=== PATIENT | female | born 1970 ===

== ENCOUNTER 2024-12-15 07:00 | Inpatient (IN) | payer OTHER ==
[~2024-12-15] VITALS: Ht 167.6 cm; Wt 82.6 kg
[2024-12-15 08:26] VITALS: BP 138/80
[2024-12-15 09:15] LABS: HEMOGLOBIN 13.3 g/dL (12.0-15.00); MEAN CORPUSCULAR HEMOGLOBIN 30.2 pg (27.00-32.0); MEAN CORPUSCULAR HGB CONC 33.1 g/dl (32.0-36.0); PLATELET COUNT 232 K/uL (150-450); RED CELL DISTRIBUTION WIDTH 13.3 % (11.5-14.5)
[2024-12-15 09:17] LABS: PH,URINE 6.5 (5.0-8.0); URINE APPEARANCE Clear; URINE BILIRRUBIN Negative (NEGATIVE); URINE BLOOD Negative; URINE COLOR Yellow; URINE GLUCOSE Negative (NEGATIVE); URINE KETONE Negative (NEGATIVE); URINE LEUKOCYTE Negative; URINE NITRATE Negative; URINE PROTEIN Negative (NEGATIVE); URINE UROBILINOGEN 0.2 E.U./dl
[2024-12-15 09:22] LABS: URINE BACTERIA 144.3 uL (0.0-1933); URINE EPITHELIAL CELLS 14.8 uL (0.0-38.8); URINE RBC 4.4 uL (0.0-20.8); URINE WBC 6.7 uL (0.0-23.2)
[2024-12-15 09:39] LABS: INR 0.99; PARTIAL THROMBOPLASTIN TIME 31.6 SECONDS (22.0-34.0); PROTHROMBIN TIME 10.8 SECONDS (9.0-11.5)
[2024-12-15 10:30] LABS: ALBUMIN 4.4 gm/dL (3.4-5.0); BILIRUBIN TOTAL 0.66 mg/dL (0.3-1.2); CALCIUM 9.9 mg/dL (8.5-10.1); CHOL HDL RATIO 3.4 (0-5.0); CREATININE SERUM 0.68 mg/dL (0.55-1.02); GFR 89.83; GLOBULINA 3.7 G/DL (2.4-3.5); POTASSIUM 4.55 mEq/L (3.5-5.1); TOTAL PROTEIN 8.1 gm/dL (6.4-8.2)
[2024-12-15 11:09] LABS: RH POSITIVE
[2024-12-26] MEDS ORDERED: TRANEXAMIC ACID 100MG/1ML (1000MG) AMPUL IV ONE ×2 (13:30)
[2024-12-26] MEDS ORDERED: LIDOCAINE HCL 1%/EPINEPHRINE 20ML VIAL IJ ONE (13:30)
[2024-12-26] MEDS ORDERED: ISOPROPYL ALCOHOL 30 ML OUNCE TOP ONE (13:30)
[2024-12-26] MEDS ORDERED: CEFAZOLIN SODIUM 1,000 MG VIAL IV ONE (13:30)
[2024-12-26] MEDS ORDERED: MORPHINE SULFATE 4 MG/ML VIAL IV ONE (13:30)
[2024-12-26] MEDS ORDERED: KETOROLAC TROMETHAMINE 60 MG VIAL IM ONE (13:30)
[2024-12-26] MEDS ORDERED: BUPIVACAINE HCL 30 ML VIAL IJ ONE (13:30)
[2024-12-26] MEDS ORDERED: SODIUM CHLORIDE 0.45 % 1,000 ML IV SCH (15:15)
[2024-12-26] MEDS ORDERED: OxyCODONE HCL 5 MG TABLET (ROXICODONE) PO PRN (15:15)
[2024-12-26] MEDS ORDERED: ONDANSETRON HCL 2 MG/ML VIAL IV PRN (15:15)
[2024-12-26] MEDS ORDERED: MORPHINE SULFATE 4 MG/ML CARTRIDGE IV PRN (15:15)
[2024-12-26] MEDS ORDERED: DIPHENHYDRAMINE HCL 50 MG/ML VIAL 1ML ONE (15:58)
[2024-12-26] MEDS ORDERED: CEFAZOLIN SODIUM 1,000 MG VIAL ONE (16:30)
[2024-12-26] MEDS ORDERED: GABAPENTIN 300 MG CAPSULE PO SCH (17:00)
[2024-12-26] MEDS ORDERED: CEFAZOLIN SODIUM 1,000 MG VIAL IV SCH (17:00)
[2024-12-26] MEDS ORDERED: ACETAMINOPHEN 500 MG GEL..CAP PO SCH (18:00)
[2024-12-26 20:01] VITALS: BP 151/77; O2SAT 99
[2024-12-27 00:47] VITALS: BP 160/85; O2SAT 97
[2024-12-27 07:08] LABS: HEMATOCRIT 33.7 % (36.0-45.00); HEMOGLOBIN 11.3 g/dL (12.0-15.00); MEAN CELL VOLUME 89.8 fL (80.00-100.00); MEAN CORPUSCULAR HGB CONC 33.4 g/dl (32.0-36.0); PLATELET COUNT 208 K/uL (150-450); RED BLOOD COUNT 3.75 M/uL (4.00-6.00); RED CELL DISTRIBUTION WIDTH 13.5 % (11.5-14.5)
[2024-12-27 08:36] VITALS: BP 136/83; O2SAT 95
[2024-12-27] MEDS ORDERED: ELIQUIS2.5 MG PO (08:38)
[2024-12-27] MEDS ORDERED: PERCOCET 5-3251 EACH PO (08:38)
[2024-12-27] MEDS ORDERED: DUI500 PO (08:38)
[2024-12-27] MEDS ORDERED: APIXABAN 2.5 MG TABLET PO SCH (09:00)
[2024-12-27] MEDS ORDERED: SENNOSIDES 1 TAB TABLET PO SCH (09:00)
[2024-12-27] MEDS ORDERED: CURCUMIN1 GM MC (12:18)
[2024-12-27] MEDS ORDERED: Cyanocobalamin/Mecobalamin 1 TAB.SL SL SCH (12:50)
[2024-12-27] MEDS ORDERED: SOD FERRIC GLUC COMPLX/SUCROSE 62.5 MG/5 ML AMPUL IV SCH (12:50)
[2024-12-27 16:00] VITALS: BP 132/80; O2SAT 99
[2024-12-27] MEDS ORDERED: VITAMIN B COMPLEX 1 EACH PO SCH (17:00)
[2024-12-28 00:52] VITALS: BP 133/68; O2SAT 95
[2024-12-28 07:14] LABS: HEMATOCRIT 29.4 % (36.0-45.00); HEMOGLOBIN 9.8 g/dL (12.0-15.00); MEAN CELL VOLUME 91.1 fL (80.00-100.00); MEAN CORPUSCULAR HEMOGLOBIN 30.2 pg (27.00-32.0); MEAN CORPUSCULAR HGB CONC 33.2 g/dl (32.0-36.0); PLATELET COUNT 180 K/uL (150-450); RED BLOOD COUNT 3.23 M/uL (4.00-6.00); RED CELL DISTRIBUTION WIDTH 13.1 % (11.5-14.5)
[2024-12-28 09:00] VITALS: BP 151/82; O2SAT 98
[2024-12-28] MEDS ORDERED: IRON FUM,PS/FOLIC ACID/VITC/B3 1 CAP CAPSULE PO SCH (09:00)
[2024-12-28 16:19] VITALS: BP 145/82; O2SAT 100
[2024-12-29] VITALS: BP 128/72; O2SAT 100
[2024-12-29 08:00] VITALS: BP 142/91; O2SAT 96
== END 2024-12-29 11:26 | DRG 470 ==
LOC: SURG 12-26 05:40 → O/R 12-26 05:40 → SURH 12-26 07:00 → SURG 12-26 16:10
PROVIDERS: ADMIT Orthopaedic Surgery; ATTEND Orthopaedic Surgery
PROC: 0MNN0ZZ Release Right Knee Bursa and Ligament, Open Approach (ICD-10-PCS; 2024-12-26)
PROC: 0SRC0J9 Replacement of Right Knee Joint with Synthetic Substitute, Cemented, Open Approach (ICD-10-PCS; principal; 2024-12-26 10:00)
DX: M17.11 Unilateral primary osteoarthritis, right knee (principal); D62 Acute posthemorrhagic anemia